=== PATIENT | female | born 1995 | race Caucasian/White ===

== ENCOUNTER → 2021-03-02 16:55 | Outpatient (CLI) | payer OTHER, SELFPAY | PROVIDERS: PCP Family Medicine; Referring Provider Family Medicine; Visit Provider Family Medicine | DX: Z20.822 Contact with and (suspected) exposure to COVID-19 (principal) | CPT/HCPCS: 87635; U0005; U0003 ==

== ENCOUNTER → 2021-06-09 06:56 | Outpatient (CLI) | payer OTHER, SELFPAY | PROVIDERS: PCP Family Medicine; Referring Provider Family Medicine; Visit Provider Family Medicine | DX: J06.9 Acute upper respiratory infection, unspecified (principal) | CPT/HCPCS: 87633; 87635; U0005; U0003 ==

== ENCOUNTER 2021-06-28 09:44 | Outpatient (CLI) | payer BC, SELFPAY ==
[2021-06-28 13:16] LABS: HIV - WCH Non-Reactive (Nonreactive); Hepatitis C Antibody Non-Reactive (Nonreactive); Syphilis Antibodies Non-reactive
[2021-06-28 19:14] LABS: Chlamydia Trachomatis by PCR POSITIVE (Negative); Neisserai gonorrhoeae by PCR Negative (Negative); Probe Check PASS
== END 2021-06-28 23:59 | disposition short-term general hospital (02) ==
LOC: MFPLAB 09:46
PROVIDERS: PCP Family Medicine; Referring Provider Family Medicine; Visit Provider Family Medicine
DX: Z11.3 Encounter for screening for infections with a predominantly sexual mode of transmission (principal)
CPT/HCPCS: 36415; 86703; 86780; 86803; 87086; 87088; 87186; 87491; 87591

== ENCOUNTER 2021-07-08 17:24 | Outpatient (CLI) | payer BC, SELFPAY ==
[2021-07-08 19:22] LABS: Chlamydia Trachomatis by PCR Negative (Negative); Probe Check PASS; Sample Adequacy Control PASS; Specimen Processing Control PASS
== END 2021-07-08 23:59 | disposition short-term general hospital (02) ==
PROVIDERS: Family Medicine; PCP Family Medicine; Visit Provider Registered Nurse
DX: A56.8 Sexually transmitted chlamydial infection of other sites (principal)
CPT/HCPCS: 87491

== ENCOUNTER 2022-06-12 13:09 | Emergency (ER) | payer BC, SELFPAY ==
[2022-06-12 13:10] VITALS: BP 149/105; PULSE 123; RESP 16; TEMP 36.4; O2SAT 99; BMI 39.9
--- NOTE | 2022-06-12 14:36 | CT_ITS ---
STUDY: CT BRAIN WITHOUT CONTRAST REASON FOR EXAM: Female, 27 years old. trauma RADIATION DOSAGE (If Supplied By Facility): CTDIvol = ( 44.99 ) mGy, DLP = ( 779.24 ) mGycm TECHNIQUE: Transaxial CT imaging of the brain was performed without administration of intravenous contrast material. Individualized dose optimization techniques were used for this CT. COMPARISON: No relevant priors. FINDINGS: Normal soft tissue structures. Normal calvarium. Normal size ventricles and extra-axial spaces for the patient''s age. Normal white matter tracts of the cerebral hemispheres. Normal basal ganglia and thalami. Normal brainstem. Normal cerebellum. There is no intracranial hemorrhage. There are no findings of an acute ischemic infarction. Normal visualized paranasal sinuses. CT/Brain/Head without Contrast IMPRESSION: Normal unenhanced CT scan of the brain. Electronically Signed: Destin Yan MD at 16:34 EST ,
--- NOTE | 2022-06-12 15:17 | ED.RN ---
Called pharmacy for reglan po - patient awaiting ct
[2022-06-12] MEDS: Metoclopramide 10 MG Tablet PO (15:21)
--- NOTE | 2022-06-12 15:34 | EDS_ITS ---
HPI History of Present Illness Chief Complaint: Head Injury Informant: patient Onset/Context/Timing Onset: Yesterday Mechanism/Context: Blunt Injury, Fall and Trip (Over her cat) Location of pain/injuries: - (head) Quality of Pain: Aching Location: posterior head Current Severity: Moderate Maximum Severity: Moderate Worsened by: light Relieved by: nothing Associated Symptoms Associated Symptoms: Negative for Inability to ambulate, Loss of consciousness or Amnesia Narrative Narrative: Patient states she stepped backward and one of her cats was underneath her feet that she did not realize, she tripped over it, hitting the back of her head on the corner of her refrigerator, striking her head very hard. She denies any other injury. She had a mild headache, she took Naprosyn and went to bed last night and woke up today with a migraine which she does not have very much, photophobia, nausea, some blurred vision off and on but no focal neurologic symptoms or neck pain. She denies taking any other medications such as anticoagulants. PFSH [facility] Medical History no medical history no medical history Home Medications doxycycline hyclate 100 mg capsule 100 mg PO BID ##20 02/01/15 [Rx Last Taken Unknown] Allergy/AdvReac Type Severity Reaction Status Date / Time No Known Allergies Allergy Verified 06/12/22 13:10 Social History Smoking Status: Never smoker ROS ROS ED Constitutional Constitutional ED: Denies chills or fever(s) Eyes Eyes: Reports blurry vision; Denies diplopia ENT ENT ED: Denies ear pain or sore throat Cardiovascular Cardiovascular: Denies chest pain or palpitations Respiratory/Chest Respiratory/Chest: Denies cough or dyspnea Gastrointestinal Gastrointestinal: Reports nausea; Denies abdominal pain, diarrhea or vomiting Genitourinary Genitourinary ED: Denies dysuria or urinary frequency Musculoskeletal Musculoskeletal: Denies back pain or myalgias Integumentary Denies abscess or rash Neurologic Neurologic: Reports headache(s); Denies paresthesias or weakness EXAM Physical Exam Const Vital Signs: 06/12/22 13:10 06/12/22 15:18 Temperature 97.5 F L Temperature Source Temporal Pulse Rate 123 H Respiratory Rate 16 Respiratory Effort Normal Respiratory Depth Normal Respiratory Pattern Normal Blood Pressure 149/105 H Blood Pressure Mean 119 Pulse Ox 99 Oxygen Delivery Method Room Air Room Air Positive well nourished and well developed Constitutional Narrative: well-appearing General Appearance ED: well developed and NAD HEENT Reports normocephalic and moist mucous membranes HEENT Narrative: Minor erythema/contusion superior occiput without hematoma, compression, depression Eyes PERRL, EOMs intact bilaterally and conjunctivae normal Neck no lymphadenopathy, supple and no meningeal signs Resp normal respiratory effort and clear to auscultation bilaterally GI non-tender and non-distended Palpation: soft Extremity normal to inspection and full ROM Neuro oriented x3, CN's II-XII intact bilaterally and gait normal Sensorium / Orientation: awake and alert Speech: speech normal Gait (Neuro): normal gait Motor Exam: strength 5/5 throughout Psych mental status grossly normal Skin Lesions: no lesions Rashes: no rashes MDM MDM MDM Narrative Medical decision making narrative: Obtained a CT, it is negative for any acute. Reassured, this is likely a mild concussion, symptoms should resolve in a day or 2, if it takes longer than 1 week she is to follow-up, she was given Reglan here in the meantime, supportive care advised. She did feel better after the Reglan she was given for her nausea/headache. Radiography Diagnostic Testing: Clinical Impression(s) from Imaging Studies Brain CT 06/12/22 14:36 IMPRESSION: Normal unenhanced CT scan of the brain. Electronically Signed: Destin Yan MD at 16:34 EST Reading Location ID and State: [facility] / [place] Tel , Service support , Discharge Plan Triage Chief Complaint: Head Injury ED Provider: Tam Stiles Dx/Rx/DC Orders Clinical Impression: Closed head injury without loss of consciousness Instructions: ED Head Injury (Adult) Prescriptions: No Action doxycycline hyclate 100 MG capsule 100 mg PO BID Qty: 20 0RF Primary Care Provider: Ernesto Sunshine Referrals: Ernesto Sunshine MD [Primary Care Provider] - 1 Week if not improving Disposition Disposition: Home, Self Care
== END 2022-06-12 16:50 | disposition home or self-care (01) ==
PROVIDERS: Emergency Provider Emergency Medicine; PCP Family Medicine; Visit Provider Emergency Medicine
DX: S09.90XA Unspecified injury of head, initial encounter (principal); W01.0XXA Fall on same level from slipping, tripping and stumbling without subsequent striking against object, initial encounter
CPT/HCPCS: 70450; 99282

== ENCOUNTER → 2023-02-28 | Outpatient (CLI) | payer BC, SELFPAY ==
[2023-02-28 17:34] LABS: Absolute Lymphocyte Count 1.49 X10^3/uL (0.83-4.51); Absolute Neutrophil Count 3.5 X10^3/uL (2.0-7.7); Basophil# 0.03 X10^3/uL; Basophil% 0.5 % (0-1); Eosinophil# 0.05 X10^3/uL; Eosinophils% 0.9 % (0-5); Hematocrit 43.5 % (37-47); Hemoglobin 13.7 g/dL (12.0-15.0); Lymphocyte # 1.49 X10^3/ul (0.83-4.51); Lymphocyte % 26.1 % (19-41); Mean Corp Hgb Conc 31.5 g/dL (32-36); Mean Corpuscular Hgb 28.4 pg (27.0-32.0); Mean Corpuscular Volume 90.1 fL (81-99); Monocyte# 0.61 X10^3/uL; Monocyte% 10.7 % (0-10); NRBC Flagged by Analyzer 0 % (0-5); Neutrophil # 3.51 X10^3/uL (2.7-7.7); Neutrophil % 61.6 % (47-70); Platelet Count 321 K/mm3 (150-450); RBC Distribution Width CV 13.2 % (11.6-14.6); RBC Distribution Width SD 43.6 fl (35.1-43.9); Red Blood Count 4.83 M/mm3 (4.2-5.4); White Blood Count 5.7 K/mm3 (4.4-11.0)
[2023-02-28 18:18] LABS: Ferritin 59 ng/mL (8-252); Free T3 3.2 pg/mL (2.18-3.98); T4 Free Direct 1.09 ng/dL (0.76-1.46); Thyroid Stim Hormone (TSH) 1.15 uIU/mL (0.358-3.74)
[2023-03-05 09:07] LABS: Anti-Thyroglobulin AB < 1.0 IU/mL (0.0-0.9); Thyroglobulin, Serum Qt. 5.1 ng/mL (1.5-38.5); Thyroid Peroxidase AB < 9 IU/mL (0-34)
== END | disposition home or self-care (01) ==
PROVIDERS: PCP Family Medicine; Visit Provider Family Medicine
DX: L65.9 Nonscarring hair loss, unspecified (principal)
CPT/HCPCS: 36415; 82728; 84432; 84439; 84443; 84481; 85025; 86376; 86800